=== PATIENT | female | born 1965 | race Caucasian/White ===

== ENCOUNTER → 2017-03-29 | Outpatient (CLI) | payer OTHER ==
--- NOTE | 2017-03-30 11:37 | MM ---
Reason for exam: screening (asymptomatic). Last mammogram was performed 1 year ago. Physical Findings: A clinical breast exam by your physician is recommended on an annual basis and results should be correlated with mammographic findings. MG Screening Mammo w CAD Bilateral CC and MLO view(s) were taken. Prior study comparison: March 16, 2016, left breast MG work up mamm w CAD LT. March 14, 2016, bilateral MG screening mammo w CAD. The breast tissue is extremely dense which could obscure a lesion on mammography. No suspicious abnormality. No significant changes when compared with prior studies. ASSESSMENT: Negative, BI-RAD 1 RECOMMENDATION: Routine screening mammogram of both breasts in 1 year.
== END | disposition home or self-care (01) ==
LOC: RADMAMWWP 08:40
PROVIDERS: ATTEND Obstetrics & Gynecology
DX: Z12.31 Encounter for screening mammogram for malignant neoplasm of breast (principal)

== ENCOUNTER → 2018-07-11 | Outpatient (CLI) | payer OTHER ==
--- NOTE | 2018-07-15 12:03 | MM ---
Reason for exam: screening (asymptomatic). Last mammogram was performed 1 year and 3 months ago. MG 3D Screening Mammo W/Cad Bilateral CC and MLO view(s) were taken. Prior study comparison: March 29, 2017, bilateral MG screening mammo w CAD. March 16, 2016, left breast MG work up mamm w CAD LT. The breast tissue is extremely dense which could obscure a lesion on mammography. There are benign-appearing round calcifications in bilateral breast. No discrete abnormality. ASSESSMENT: Benign, BI-RAD 2 RECOMMENDATION: Routine screening mammogram of both breasts in 1 year.
== END ==
LOC: RADMAMWWP 07:33
PROVIDERS: ATTEND Obstetrics & Gynecology
DX: Z12.31 Encounter for screening mammogram for malignant neoplasm of breast (principal)
CPT/HCPCS: 77063; 77067

== ENCOUNTER → 2019-07-29 | Outpatient (CLI) | payer OTHER ==
--- NOTE | 2019-07-29 10:21 | MM ---
Reason for exam: screening (asymptomatic). Last mammogram was performed 1 year and 1 month ago. Physical Findings: A clinical breast exam by your physician is recommended on an annual basis and results should be correlated with mammographic findings. MG 3D Screening Mammo W/Cad Bilateral CC and MLO view(s) were taken. Prior study comparison: July 11, 2018, bilateral MG 3d screening mammo w/cad. March 29, 2017, bilateral MG screening mammo w CAD. The breast tissue is extremely dense which could obscure a lesion on mammography. Benign appearing bilateral calcifications. No suspicious abnormality. No significant changes when compared with prior studies. ASSESSMENT: Benign, BI-RAD 2 RECOMMENDATION: Routine screening mammogram of both breasts in 1 year.
--- NOTE | 2019-07-29 11:45 | BD ---
EXAMINATION TYPE: Axial Bone Density DATE OF EXAM: 07/29/2019 COMPARISON: NONE CLINICAL HISTORY: N 95.1 Height: 66.5 IN Weight: 147 LBS FRAX RISK QUESTIONS: Alcohol (3 or more units per day): YES Secondary Osteoporosis: Current Tobacco Use: YES RISK FACTORS HISTORY OF: Active: YES If Premenopausal, do you have irregular periods: YES MEDICATIONS: Additional Medications: CALCIUM, VIT D, EXAM MEASUREMENTS: Bone mineral densitometry was performed using the [employer]. Bone mineral density as measured about the Lumbar spine is: ----- L1-L4(G/cm2): 1.176 T Score Values are as follows: ----- L2: 0.0 ----- L3: -0.5 ----- L4: 0.0 ----- L1-L4: 0.0 Bone mineral density BASELINE Bone mineral density about the R hip (g/cm2): 1.074 Bone mineral density about the L hip (g/cm2): 1.082 T Score values are as follows: -----R Neck: 0.3 -----L Neck: 0.3 -----R Total: 1.3 -----L Total: 0.4 Bone mineral density BASELINE IMPRESSION: Normal (Values between +1 and -1 indicate normal bone mass). Consider repeating this study in 5 year s or sooner if there is some new clinical indication. NOTE: T-SCORE=SD OF THE YOUNG ADULT MEAN.
== END | disposition home or self-care (01) ==
LOC: RADMAMWWP 07:32
PROVIDERS: ATTEND Obstetrics & Gynecology
DX: Z12.31 Encounter for screening mammogram for malignant neoplasm of breast (principal); N95.1 Menopausal and female climacteric states
CPT/HCPCS: 77063; 77067; 77080

== ENCOUNTER 2020-08-25 09:39 | Day surgery (SDC) | payer BC, OTHER ==
[2020-08-20 11:01] VITALS: BMI 26.2
[~2020-08-25 09:39] MED LIST: LACTATED RINGERS 1,000 ML IV SCH; LIDOCAINE 1% (10MG/ML) FOR IV START INTRADERMA PRN
[2020-08-25] MEDS ORDERED: PROPOFOL 10 MG/ML 20 ML VIAL IV ONE (10:37)
--- NOTE | 2020-08-25 10:42 | P.GSHP ---
History of Present Illness H&P Date: 08/25/20 Chief Complaint: Colon cancer screening Patient here today for colonoscopy. Last colonoscopy about 9 years ago. No family history of colon cancer. No bowel complaints. Last colonoscopy normal per patient. Past Medical History Past Medical History: No Reported History History of Any Multi-Drug Resistant Organisms: None Reported Past Surgical History: Cholecystectomy Past Anesthesia/Blood Transfusion Reactions: Motion Sickness Past Psychological History: Anxiety Smoking Status: Former smoker Past Alcohol Use History: Daily Additional Past Alcohol Use History / Comment(s): Smoked for 38 yrs, quit 13 months ago. Uses alcohol daily, 3-4 beers. Past Drug Use History: None Reported - Past Family History Mother Family Medical History: Deep Vein Thrombosis (DVT) Additional Family Medical History / Comment(s): "Blood clot around heart." Medications and Allergies Home Medications Medication Instructions Recorded Confirmed Type Ascorbic Acid [Vitamin C] 500 mg PO DAILY 08/20/20 08/25/20 History Cholecalciferol [Vitamin D3 (25 25 mcg PO DAILY 08/20/20 08/25/20 History Mcg = 1000 Iu)] Elderberry 1 tab PO DAILY 08/20/20 08/25/20 History Multivitamin [Multivitamins Adult 1 each PO DAILY 08/20/20 08/25/20 History Gummies] Venlafaxine HCl [Effexor] 37.5 mg PO DAILY 08/25/20 08/25/20 History Allergies Allergy/AdvReac Type Severity Reaction Status Date / Time codeine AdvReac Nausea Verified 08/25/20 10:14 Surgical - Exam Physical exam: General: Well-developed, well-nourished HEENT: Normocephalic, sclerae nonicteric Abdomen: Nontender, nondistended Extremities: No edema Neuro: Alert and oriented Assessment and Plan (1) Colon cancer screening Narrative/Plan: Will proceed with colonoscopy Current Visit: Yes Status: Acute Code(s): Z12.11 - ENCOUNTER FOR SCREENING FOR MALIGNANT NEOPLASM OF COLON SNOMED Code(s): 560545920
--- NOTE | 2020-08-25 10:58 | P.PCN ---
Date of Procedure: 08/25/20 Procedure(s) Performed: PREOPERATIVE DIAGNOSIS: Colon cancer screening POSTOPERATIVE DIAGNOSIS: Transverse colon polyp, mild diverticulosis PROCEDURE: Colonoscopy with snare polypectomy ANESTHESIA: MAC SURGEON: Guy Alejandra M.D. SPECIMENS: Polyp ENDOSCOPIC PROCEDURE: The patient was placed on the endoscopy table in the left decubitus position. The Olympus colonoscope was inserted into the anus and passed under direct visualization to the base of the cecum. The appendiceal orifice was visualized. From that point the scope was slowly withdrawn inspecting all surfaces carefully. There were no neoplastic inflammatory or polypoid lesions throughout the cecum and a setting colon. In the transverse colon a small polyp was seen and removed using the snare with cautery technique. The remainder of the transverse descending sigmoid and rectum was normal. There was mild left-sided diverticulosis present. Digital rectal examination was normal. The patient was taken to the recovery room in stable condition per anesthesia guidelines. RECOMMENDATIONS: Await biopsy results.
[2020-08-25 11:06] VITALS: RESP 16
[2020-08-25 11:19] VITALS: BP 115/79; PULSE 75
== END 2020-08-25 11:41 | disposition home or self-care (01) ==
LOC: ORWHC2ENDO 09:39
PROVIDERS: ATTEND Surgery
DX: Z12.11 Encounter for screening for malignant neoplasm of colon (principal); D12.3 Benign neoplasm of transverse colon; K57.30 Diverticulosis of large intestine without perforation or abscess without bleeding; F41.9 Anxiety disorder, unspecified; Z98.890 Other specified postprocedural states; Z90.49 Acquired absence of other specified parts of digestive tract; Z87.898 Personal history of other specified conditions; Z87.891 Personal history of nicotine dependence; Z79.899 Other long term (current) drug therapy; Z88.5 Allergy status to narcotic agent; Z82.49 Family history of ischemic heart disease and other diseases of the circulatory system
CPT/HCPCS: 88305; 45385; J2704

== ENCOUNTER → 2020-09-04 | Outpatient (CLI) | payer BC ==
--- NOTE | 2020-09-07 12:05 | MM ---
Reason for exam: screening (asymptomatic). Last mammogram was performed 1 year and 1 month ago. Physical Findings: A clinical breast exam by your physician is recommended on an annual basis and results should be correlated with mammographic findings. MG 3D Screening Mammo W/Cad Bilateral CC and MLO view(s) were taken. Prior study comparison: July 29, 2019, bilateral MG 3d screening mammo w/cad. July 11, 2018, bilateral MG 3d screening mammo w/cad. The breast tissue is heterogeneously dense. This may lower the sensitivity of mammography. There are benign appearing round calcifications bilaterally. There is no discrete abnormality. ASSESSMENT: Benign, BI-RAD 2 RECOMMENDATION: Routine screening mammogram of both breasts in 1 year.
== END ==
LOC: RADMAMWWP 07:42
PROVIDERS: ATTEND Obstetrics & Gynecology
DX: Z12.31 Encounter for screening mammogram for malignant neoplasm of breast (principal)
CPT/HCPCS: 77063; 77067

== ENCOUNTER → 2021-09-06 | Outpatient (CLI) | payer BC ==
--- NOTE | 2021-09-07 10:11 | MM ---
Reason for exam: screening (asymptomatic). Last mammogram was performed 1 year ago. History: Patient is postmenopausal. Physical Findings: A clinical breast exam by your physician is recommended on an annual basis and results should be correlated with mammographic findings. MG 3D Screening Mammo W/Cad Bilateral CC and MLO view(s) were taken. XCCL view(s) were taken of the right breast. Prior study comparison: September 04, 2020, bilateral MG 3d screening mammo w/cad. July 29, 2019, bilateral MG 3d screening mammo w/cad. The breast tissue is heterogeneously dense. This may lower the sensitivity of mammography. Finding #1: There is a 9 mm lobulated mass in the axilla position of the right breast. Finding #2: There are typically benign calcifications in both breasts. There is a chronic nodularity in the right breast, stable. There are grouped calcifications in the left upper breast. ASSESSMENT: Incomplete: need additional imaging evaluation, BI-RAD 0 RECOMMENDATION: Special view mammogram of the left breast. Ultrasound of the right breast. [facility] will attempt to contact patient to return for supplemental views and ultrasound.
== END | disposition home or self-care (01) ==
LOC: RADMAMWWP 07:34
PROVIDERS: ATTEND Obstetrics & Gynecology
DX: Z12.31 Encounter for screening mammogram for malignant neoplasm of breast (principal); Z78.0 Asymptomatic menopausal state
CPT/HCPCS: 77063; 77067

== ENCOUNTER → 2021-09-14 | Outpatient (CLI) | payer BC ==
--- NOTE | 2021-09-14 11:26 | USB ---
Reason for exam: additional evaluation requested from abnormal screening. History: Patient is postmenopausal. Physical Findings: A clinical breast exam by your physician is recommended on an annual basis and results should be correlated with mammographic findings. US Breast Workup Limited RT Right limited breast ultrasound including focal area of concern, retroareolar and axilla demonstrates a 10 x 8mm oval lymph node at 11 o'clock, 9-10cm from nipple, cortex slightly thickened at 3mm but fatty hilum maintained. 6 month follow up recommended. Scanned 11 o'clock, axilla tail and axilla. These results were verbally communicated with the patient and result sheet given to the patient on 09/14/21. ASSESSMENT: Probably benign, BI-RAD 3 RECOMMENDATION: Follow-up diagnostic mammogram of both breasts in 6 months.
--- NOTE | 2021-09-14 11:35 | MM ---
Reason for exam: additional evaluation requested from abnormal screening. Last mammogram was performed less than 1 month ago. History: Patient is postmenopausal. Physical Findings: A clinical breast exam by your physician is recommended on an annual basis and results should be correlated with mammographic findings. MG 3D Work Up W/Cad LT CC with magnification, LM with magnification, and LM view(s) were taken of the left breast. Prior study comparison: September 06, 2021, bilateral MG 3d screening mammo w/cad. September 04, 2020, bilateral MG 3d screening mammo w/cad. The breast tissue is heterogeneously dense. This may lower the sensitivity of mammography. Punctate and amorphous grouped calcifications upper outer quadrant posterior left breast are probably benign. They may have faintly been present previously. These results were verbally communicated with the patient and result sheet given to the patient on 09/14/21. ASSESSMENT: Incomplete: need additional imaging evaluation, BI-RAD 0 RECOMMENDATION: Ultrasound. (right breast)
== END | disposition home or self-care (01) ==
LOC: RADMAMWWP 09:53
PROVIDERS: ATTEND Obstetrics & Gynecology
DX: R92.8 Other abnormal and inconclusive findings on diagnostic imaging of breast (principal); Z78.0 Asymptomatic menopausal state
CPT/HCPCS: 77061; 77065

== ENCOUNTER 2021-11-19 02:42 | Inpatient (IN) | payer BC ==
--- NOTE | 2021-11-19 03:24 | ED ---
SOB HPI - General Chief Complaint: Shortness of Breath Stated Complaint: CECI Time Seen by Provider: 11/19/21 03:16 Source: patient, family, RN notes reviewed, old records reviewed Mode of arrival: ambulatory Limitations: no limitations - History of Present Illness Initial Comments: This is a 55-year-old female DF for evaluation. Patient hasn't been treated on an outpatient basis for wheezing and shortness of breath. Patient has a long history of smoking but did quit 2 years ago she also did have coronavirus about 2 years ago. No travel history no sick contacts no current fevers no chest pain. No swelling of the legs no pain in the legs. States her shortness of breath is severe especially with exertion MD Complaint: shortness of breath, cough -: week(s) Radiation: back Severity: severe Severity scale (1-10): 10 Consistency: constant Improves With: nothing, rest Worsens With: exertion, movement Known History Of: COPD, asthma Context: recent URI, recent illness Associated Symptoms: cough Treatments Prior to Arrival: none - Related Data Home Medications Medication Instructions Recorded Confirmed Ascorbic Acid [Vitamin C] 500 mg PO DAILY 08/20/20 08/25/20 Cholecalciferol [Vitamin D3 (25 25 mcg PO DAILY 08/20/20 08/25/20 Mcg = 1000 Iu)] Elderberry 1 tab PO DAILY 08/20/20 08/25/20 Multivitamin [Multivitamins Adult 1 each PO DAILY 08/20/20 08/25/20 Gummies] Venlafaxine HCl [Effexor] 37.5 mg PO DAILY 08/25/20 08/25/20 Allergies Allergy/AdvReac Type Severity Reaction Status Date / Time codeine AdvReac Nausea Verified 11/19/21 02:56 Review of Systems ROS Statement: Those systems with pertinent positive or pertinent negative responses have been documented in the HPI. ROS Other: All systems not noted in ROS Statement are negative. Past Medical History Past Medical History: No Reported History History of Any Multi-Drug Resistant Organisms: None Reported Past Surgical History: Cholecystectomy Past Anesthesia/Blood Transfusion Reactions: Motion Sickness Past Psychological History: Anxiety Smoking Status: Former smoker Past Alcohol Use History: Daily Past Drug Use History: None Reported - Past Family History Mother Family Medical History: Deep Vein Thrombosis (DVT) Additional Family Medical History / Comment(s): "Blood clot around heart." General Exam Limitations: no limitations General appearance: alert, in no apparent distress, anxious Head exam: Present: atraumatic, normocephalic, normal inspection Eye exam: Present: normal appearance, PERRL, EOMI. Absent: scleral icterus, conjunctival injection, periorbital swelling ENT exam: Present: normal exam, mucous membranes moist Neck exam: Present: normal inspection. Absent: tenderness, meningismus, lymphadenopathy Respiratory exam: Present: respiratory distress, wheezes, accessory muscle use, decreased breath sounds, prolonged expiratory. Absent: rales, rhonchi, stridor Cardiovascular Exam: Present: regular rate, normal rhythm, normal heart sounds. Absent: systolic murmur, diastolic murmur, rubs, gallop, clicks GI/Abdominal exam: Present: soft, normal bowel sounds. Absent: distended, tenderness, guarding, rebound, rigid Extremities exam: Present: normal inspection, full ROM, normal capillary refill. Absent: tenderness, pedal edema, joint swelling, calf tenderness Back exam: Present: normal inspection Neurological exam: Present: alert, oriented X3, CN II-XII intact Psychiatric exam: Present: normal affect, normal mood Skin exam: Present: warm, dry, intact, normal color. Absent: rash Course Vital Signs 11/19/21 11/19/21 11/19/21 02:53 03:26 03:28 Temperature 97.5 F L Pulse Rate 95 85 Respiratory 22 22 22 Rate Blood Pressure 133/81 139/77 O2 Sat by Pulse 86 L 93 L Oximetry 11/19/21 11/19/21 11/19/21 03:56 04:06 05:01 Temperature Pulse Rate 96 96 87 Respiratory 20 Rate Blood Pressure 122/58 O2 Sat by Pulse 94 L Oximetry - Reevaluation(s) Reevaluation #1: 11/19/21 05:09 Medical record is reviewed Reevaluation #2: 11/19/21 05:09 Breathing is improving here on breathing treatments as well as supplemental O2 Reevaluation #3: 11/19/21 05:09 Patient is informed of results and questions have been answered - Consultations Consultation #1: Spoke with PMH were agreeable to admit this patient Medical Decision Making - Medical Decision Making 55 female to the emergency department for evaluation of severe shortness of breath history of smoking no diagnosis of COPD. Patient likely has significant COPD with hypoxia acute bronchitis. Patient be admitted for further evaluation management - Lab Data Result diagrams: 11/19/21 03:51 11/19/21 03:51 Lab Results 11/19/21 11/19/21 11/19/21 Range/Units 03:51 03:51 03:51 WBC 8.7 (3.8-10.6) k/uL RBC 4.64 (3.80-5.40) m/uL Hgb 14.8 (11.4-16.0) gm/dL Hct 43.3 (34.0-46.0) % MCV 93.3 (80.0-100.0) fL MCH 31.9 (25.0-35.0) pg MCHC 34.2 (31.0-37.0) g/dL RDW 12.8 (11.5-15.5) % Plt Count 284 (150-450) k/uL MPV 7.1 Neutrophils % 40 % Lymphocytes % 47 % Monocytes % 4 % Eosinophils % 6 % Basophils % 1 % Neutrophils # 3.5 (1.3-7.7) k/uL Lymphocytes # 4.1 (1.0-4.8) k/uL Monocytes # 0.4 (0-1.0) k/uL Eosinophils # 0.6 (0-0.7) k/uL Basophils # 0.1 (0-0.2) k/uL PT 10.1 (9.0-12.0) sec INR 0.9 (<1.2) APTT 24.5 (22.0-30.0) sec D-Dimer 0.41 (<0.60) mg/L FEU Sodium 135 L (137-145) mmol/L Potassium 3.8 (3.5-5.1) mmol/L Chloride 103 (98-107) mmol/L Carbon Dioxide 23 (22-30) mmol/L Anion Gap 9 mmol/L BUN 4 L (7-17) mg/dL Creatinine 0.57 (0.52-1.04) mg/dL Est GFR (CKD-EPI)AfAm >90 (>60 ml/min/1.73 sqM) Est GFR (CKD-EPI)NonAf >90 (>60 ml/min/1.73 sqM) Glucose 103 H (74-99) mg/dL Calcium 8.6 (8.4-10.2) mg/dL Magnesium 1.9 (1.6-2.3) mg/dL Total Bilirubin 0.3 (0.2-1.3) mg/dL AST 27 (14-36) U/L ALT 31 (4-34) U/L Alkaline Phosphatase 82 (38-126) U/L Troponin I (0.000-0.034) ng/mL NT-Pro-B Natriuret Pep pg/mL Total Protein 6.8 (6.3-8.2) g/dL Albumin 4.2 (3.5-5.0) g/dL Coronavirus (PCR) (Not Detectd) 11/19/21 11/19/21 11/19/21 Range/Units 03:51 03:51 03:51 WBC (3.8-10.6) k/uL RBC (3.80-5.40) m/uL Hgb (11.4-16.0) gm/dL Hct (34.0-46.0) % MCV (80.0-100.0) fL MCH (25.0-35.0) pg MCHC (31.0-37.0) g/dL RDW (11.5-15.5) % Plt Count (150-450) k/uL MPV Neutrophils % % Lymphocytes % % Monocytes % % Eosinophils % % Basophils % % Neutrophils # (1.3-7.7) k/uL Lymphocytes # (1.0-4.8) k/uL Monocytes # (0-1.0) k/uL Eosinophils # (0-0.7) k/uL Basophils # (0-0.2) k/uL PT (9.0-12.0) sec INR (<1.2) APTT (22.0-30.0) sec D-Dimer (<0.60) mg/L FEU Sodium (137-145) mmol/L Potassium (3.5-5.1) mmol/L Chloride (98-107) mmol/L Carbon Dioxide (22-30) mmol/L Anion Gap mmol/L BUN (7-17) mg/dL Creatinine (0.52-1.04) mg/dL Est GFR (CKD-EPI)AfAm (>60 ml/min/1.73 sqM) Est GFR (CKD-EPI)NonAf (>60 ml/min/1.73 sqM) Glucose (74-99) mg/dL Calcium (8.4-10.2) mg/dL Magnesium (1.6-2.3) mg/dL Total Bilirubin (0.2-1.3) mg/dL AST (14-36) U/L ALT (4-34) U/L Alkaline Phosphatase (38-126) U/L Troponin I <0.012 (0.000-0.034) ng/mL NT-Pro-B Natriuret Pep 48 pg/mL Total Protein (6.3-8.2) g/dL Albumin (3.5-5.0) g/dL Coronavirus (PCR) Not Detected (Not Detectd) - EKG Data -: EKG Interpreted by Me (EKG is sinus rhythm 89 IA 122 QRS 13 QTc 460) - Radiology Data Radiology results: report reviewed (Chest x-ray shows interstitial infiltrate), image reviewed Critical Care Time Critical Care Time: Yes Total Critical Care Time: 31 Disposition Clinical Impression: Community acquired pneumonia, Acute exacerbation of chronic obstructive pulmonary disease, Hypoxia, Acute bronchitis Disposition: ADMITTED IP TO THIS HOSP Condition: Serious Is patient prescribed a controlled substance at d/c from ED?: No Referrals: Rabia Alejandra MD [Primary Care Provider] - 1-2 days
[2021-11-19] MEDS ORDERED: IPRATROPIUM-ALBUTEROL 3 ML NEB INHALATION STA ×2 (03:37→05:06)
[2021-11-19 04:20] LABS: INR 0.9 (<1.2); Partial Thromboplastin Time 24.5 sec (22.0-30.0); Prothrombin Time 10.1 sec (9.0-12.0)
[2021-11-19 04:23] LABS: ALT 31 U/L (4-34); AST 27 U/L (14-36); African American GFR (CKD) >90 (>60 ml/min/1.73 sqM); Albumin 4.2 g/dL (3.5-5.0); Alkaline Phosphatase 82 U/L (38-126); Anion Gap 9 mmol/L; Blood Urea Nitrogen 4 mg/dL (7-17); Calcium 8.6 mg/dL (8.4-10.2); Carbon Dioxide 23 mmol/L (22-30); Chloride 103 mmol/L (98-107); Glucose 103 mg/dL (74-99); Magnesium 1.9 mg/dL (1.6-2.3); Non-African American GFR(CKD) >90 (>60 ml/min/1.73 sqM); Potassium 3.8 mmol/L (3.5-5.1); Sodium 135 mmol/L (137-145); Total Bilirubin 0.3 mg/dL (0.2-1.3); Total Protein 6.8 g/dL (6.3-8.2)
[2021-11-19 04:35] LABS: Basophils # (A) 0.1 k/uL (0-0.2); Basophils % (A) 1 %; Eosinophils # (A) 0.6 k/uL (0-0.7); Eosinophils % (A) 6 %; HCT 43.3 % (34.0-46.0); HGB 14.8 gm/dL (11.4-16.0); Lymphocytes # (A) 4.1 k/uL (1.0-4.8); Lymphocytes % (A) 47 %; MCH 31.9 pg (25.0-35.0); MCHC 34.2 g/dL (31.0-37.0); MCV 93.3 fL (80.0-100.0); Mean Platelet Volume 7.1; Monocytes # (A) 0.4 k/uL (0-1.0); Monocytes % (A) 4 %; Neutrophils # (A) 3.5 k/uL (1.3-7.7); Neutrophils % (A) 40 %; Platelet Count 284 k/uL (150-450); RBC 4.64 m/uL (3.80-5.40); RDW 12.8 % (11.5-15.5); WBC 8.7 k/uL (3.8-10.6)
--- NOTE | 2021-11-19 05:02 | XR ---
EXAMINATION TYPE: XR chest 1V portable DATE OF EXAM: 11/19/2021 COMPARISON: 10/10/2010 HISTORY: Short of breath TECHNIQUE: Single view FINDINGS: There is some coarsening of the interstitial markings in the left lower lobe. No heart fail ure. Heart size is normal. There are no hilar masses. Costophrenic angles are clear IMPRESSION: Mildly increased pulmonary interstitial density compared to old exam. No heart failure.
[2021-11-19] MEDS ORDERED: methylPREDNISolone SOD SUCCI 125 MG/2 ML VIAL IV STA (05:06)
[2021-11-19] MEDS ORDERED: AZITHROMYCIN 500 MG in SODIUM CHLORIDE 0.9% 250 ML IVPB STA (05:11)
[2021-11-19] MEDS ORDERED: MORPHINE SULFATE 4 MG/ML SYRINGE IV PRN (05:49)
[2021-11-19] MEDS ORDERED: MORPHINE SULFATE 4 MG/ML SYRINGE IVP STA (05:49)
[2021-11-19] MEDS ORDERED: LORazepam 2 MG/ML INJ IV PRN (05:49)
[2021-11-19] MEDS ORDERED: LORazepam 2 MG/ML INJ IV STA (05:49)
[2021-11-19] MEDS: SODIUM CHLORIDE 0.9% 1,000 ML IV SCH ×2 (05:57→19:57)
[2021-11-19] MEDS: ALBUTEROL NEBULIZED 2.5 MG/3 ML INHALATION SCH ×3 (07:38→19:15)
[2021-11-19] MEDS: IPRATROPIUM-ALBUTEROL 3 ML NEB INHALATION SCH ×3 (11:45→20:09)
[2021-11-19] MEDS: methylPREDNISolone SOD SUCCI 125 MG/2 ML VIAL IV SCH ×3 (12:14→23:44)
--- NOTE | 2021-11-19 13:05 | P.CNPUL ---
History of Present Illness Consult date: 11/19/21 Requesting physician: Larry Mccormack Reason for consult: dyspnea, cough Chief complaint: Dyspnea, wheezing History of present illness: 55-year-old white female patient with known history of COPD, who follows with Dr. Rabia Alejandra, came into the emergency department on 11/19/2021 with shortness of breath, and wheezing. Patient has a long history of smoking, but did quit 2 years ago. She had a COVID 19 infection 2 years ago. Denies any fever, no chills, no chest pain. No swelling in lower extremities, no sick contacts. Patient is only on Ventolin HFA inhaler on a regular basis. No other inhalers for her history of COPD. Chest x-ray showing mildly increased pulmonary interstitial density. She was tested negative for COVID-19, CBC was within normal limits, white blood cell, was 8.7, hemoglobin was 14.8, correlation profile was within normal limits, d-dimer was 0.41, electrolytes were unremarkable, BUN was for creatinine 0.57, LFTs were within normal limits, troponin was negative at less than 0.012. On physical exam patient is significantly bronchospastic, but does not appear to be in any acute distress, on 4 L of oxygen pulse ox is 95%, ascites or stable, she is afebrile. Patient was started on IV steroids at 60 mg every 6 hours, azithromycin, nebulized bronchodilators. Review of Systems All systems: negative Constitutional: Denies chills, Denies fever Eyes: denies blurred vision, denies pain Ears, nose, mouth and throat: Denies headache, Denies sore throat Cardiovascular: Denies chest pain, Denies shortness of breath Respiratory: Reports congestion, Reports dyspnea, Reports wheezing, Denies cough Gastrointestinal: Denies abdominal pain, Denies diarrhea, Denies nausea, Denies vomiting Genitourinary: Denies dysuria, Denies hematuria Musculoskeletal: Denies myalgias Integumentary: Denies pruritus, Denies rash Neurological: Denies numbness, Denies weakness Psychiatric: Denies anxiety, Denies depression Endocrine: Denies fatigue, Denies weight change Past Medical History Past Medical History: No Reported History History of Any Multi-Drug Resistant Organisms: None Reported Past Surgical History: Cholecystectomy Past Anesthesia/Blood Transfusion Reactions: Motion Sickness Past Psychological History: Anxiety Smoking Status: Former smoker Past Alcohol Use History: Daily Past Drug Use History: None Reported - Past Family History Mother Family Medical History: Deep Vein Thrombosis (DVT) Additional Family Medical History / Comment(s): "Blood clot around heart." Medications and Allergies Home Medications Medication Instructions Recorded Confirmed Type ALPRAZolam [Xanax] 0.5 mg PO DAILY PRN 11/19/21 11/19/21 History Albuterol Inhaler [Ventolin Hfa 2 puff INHALATION RT-TID 11/19/21 11/19/21 History Inhaler] Allergies Allergy/AdvReac Type Severity Reaction Status Date / Time codeine AdvReac Nausea Verified 11/19/21 07:16 Physical Exam Vitals: Vital Signs Temp Pulse Resp BP Pulse Ox 11/19/21 11:58 100 11/19/21 11:45 103 H 11/19/21 06:18 97 11/19/21 06:00 99 11/19/21 05:47 101 H 16 116/81 94 L 11/19/21 05:01 87 20 122/58 94 L 11/19/21 04:06 96 11/19/21 03:56 96 11/19/21 03:28 22 11/19/21 03:26 85 22 139/77 93 L 11/19/21 02:53 97.5 F L 95 22 133/81 86 L Intake and Output 11/18/21 11/19/21 11/19/21 22:59 06:59 14:59 Other: Weight 79.379 kg GENERAL EXAM: Alert, pleasant, 55-year-old white female, on 4 L of oxygen comfortable in no apparent distress. HEAD: Normocephalic/atraumatic. EYES: Normal reaction of pupils, equal size. Conjunctiva pink, sclera white. NOSE: Clear with pink turbinates. THROAT: No erythema or exudates. NECK: No masses, no JVD, no thyroid enlargement, no adenopathy. CHEST: No chest wall deformity. Symmetrical expansion. LUNGS: Equal air entry with diffuse wheezes and congested cough CVS: Regular rate and rhythm, normal S1 and S2, no gallops, no murmurs, no rubs ABDOMEN: Soft, nontender. No hepatosplenomegaly, normal bowel sounds, no guarding or rigidity. EXTREMITIES: No clubbing, no edema, no cyanosis, 2+ pulses and upper and lower extremities. MUSCULOSKELETAL: Muscle strength and tone normal. SPINE: No scoliosis or deformity SKIN: No rashes CENTRAL NERVOUS SYSTEM: Alert and oriented -3. No focal deficits, tone is normal in all 4 extremities. PSYCHIATRIC: Alert and oriented -3. Appropriate affect. Intact judgment and insight. Results - Laboratory Findings CBC and BMP: 11/19/21 03:51 11/19/21 03:51 PT/INR, D-dimer PT 10.1 sec (9.0-12.0) 11/19/21 03:51 INR 0.9 (<1.2) 11/19/21 03:51 D-Dimer 0.41 mg/L FEU (<0.60) 11/19/21 03:51 Abnormal lab findings: Abnormal Labs 11/19/21 03:51 Sodium 135 L BUN 4 L Glucose 103 H - Diagnostic Findings Chest x-ray: report reviewed, image reviewed Assessment and Plan Plan: Assessment: #1. Acute hypoxic respiratory failure related to acute exacerbation of COPD #2. Former history of smoking, in remission for the last 2 years #3. History of COVID-19 infection in 2019 #4. Anxiety #5. History of COPD Plan: Continue IV steroids Continue DuoNeb, we will add Pulmicort and Perforomist Continue azithromycin We'll continue to follow patient's clinical course Wean FiO2 to keep O2 Sats above 90-92% I have personally seen and examined the patient, performed the documentation and the assessment and plan as written. Number of minutes spent on the visit: [15] Time with Patient: Greater than 30
[2021-11-19] MEDS: HEPARIN SODIUM,PORCINE/PF 5,000 UNIT/0.5 ML SYRINGE SQ SCH ×2 (17:10→23:44)
[2021-11-19] MEDS: guaiFENesin-Coden 100-10MG/5ML 10 ML CUP PO PRN ×2 (17:12→23:44)
[2021-11-19] MEDS ORDERED: ZOLPIDEM 5 MG TAB PO PRN (18:11)
[2021-11-19] MEDS ORDERED: IPRATROPIUM-ALBUTEROL 3 ML NEB INHALATION PRN (19:16)
[2021-11-19] MEDS: BUDESONIDE 1 MG/2 ML NEBU INHALATION SCH (20:09)
[2021-11-19] MEDS: FORMOTEROL FUMARATE 20 MCG/2 ML NEBU INHALATION SCH (20:09)
--- NOTE | 2021-11-19 23:12 | P.HPIM ---
History of Present Illness H&P Date: 11/19/21 Chief Complaint: SOB Patient is a 55-year-old female without significant past medical history presents to ER with complaints of shortness of breath and wheezing and worsening symptoms for the past 3 weeks. Patient was working in the garden about 3 weeks ago and started having shortness of breath and wheezing and was seen by primary care physician. Patient was given Ventolin inhaler and also steroid course which seem to be not helping. Yesterday she became more short of breath with exertional dyspnea and came to ER for evaluation. Does have cough with clear to whitish sputum production. No fever no chills. No chest pain. No nausea vomiting or abdominal pain or diarrhea. Denies any recent illnesses or sick contacts. No recent travel. Patient does have history of smoking for 30 years and quit 2 years ago. Chest x-ray showed mildly increased pulmonary interstitial density compatible exam. No heart failure. Laboratory data showed sodium 135 potassium 3.8 chloride 103 bicarb is 23 BUN 4 and creatinine 0.57 and blood sugar is 103 liver enzymes are not elevated and coronavirus PCR not detected. proBNP 48 WBC 8.7 hemoglobin 14.8 and platelets 284. Review of Systems Constitutional: Patient denies any fever or chills . No generalized weakness or weight loss. Abdomen: Patient denied nausea vomiting and diarrhea and abdominal pain. Cardiovascular: Patient denies any chest pain or short of breath no palpitations. Respiratory: patient does have cough with sputum production and shortness of breath Neurologic: Patient denied any numbness or tingling headache. Musculoskeletal: Patient denies any complaints of joint swelling or deformity. Skin: Negative Psychiatric: Negative Endocrine: No heat or cold intolerance. No recent weight gain. Genitourinary: No dysuria or hematuria. All other 14 point ROS negative except the above Past Medical History Past Medical History: No Reported History History of Any Multi-Drug Resistant Organisms: None Reported Past Surgical History: Cholecystectomy Past Anesthesia/Blood Transfusion Reactions: Motion Sickness Past Psychological History: Anxiety Smoking Status: Former smoker Past Alcohol Use History: Daily Past Drug Use History: None Reported - Past Family History Mother Family Medical History: Deep Vein Thrombosis (DVT) Additional Family Medical History / Comment(s): "Blood clot around heart." Father Family Medical History: Cancer, Coronary Artery Disease (CAD) Medications and Allergies Home Medications Medication Instructions Recorded Confirmed Type ALPRAZolam [Xanax] 0.5 mg PO DAILY PRN 11/19/21 11/19/21 History Albuterol Inhaler [Ventolin Hfa 2 puff INHALATION RT-TID 11/19/21 11/19/21 H istory Inhaler] Allergies Allergy/AdvReac Type Severity Reaction Status Date / Time codeine AdvReac Nausea Verified 11/19/21 07:16 Physical Exam Vitals: Vital Signs Temp Pulse Resp BP Pulse Ox 11/19/21 06:18 97 11/19/21 06:00 99 11/19/21 05:47 101 H 16 116/81 94 L 11/19/21 05:01 87 20 122/58 94 L 11/19/21 04:06 96 11/19/21 03:56 96 11/19/21 03:28 22 11/19/21 03:26 85 22 139/77 93 L 11/19/21 02:53 97.5 F L 95 22 133/81 86 L Intake and Output 11/18/21 11/19/21 11/19/21 22:59 06:59 14:59 Other: Weight 79.379 kg PHYSICAL EXAMINATION: Patient is lying in the bed comfortably, no acute distress, awake alert and oriented.. HEENT: Normocephalic. Neck is supple. Pupils reactive. Nostrils clear. Oral cavity is moist. Neck reveals no JVD, carotid bruits, or thyromegaly. CHEST EXAMINATION: Trachea is central. Symmetrical expansion. bilateral diminished sounds and wheezing. CARDIAC: Normal S1, S2 with no gallops. No murmurs ABDOMEN: Soft. Bowel sounds normal. No organomegaly. No abdominal bruits. Extremities: reveal no edema. No clubbing or cyanosis Neurologically awake, alert, oriented x3 with well-coordinated movements. No focal deficits noted Skin: No rash or skin lesions. Psychiatric: Cooperative. Nonsuicidal Musculoskeletal: No joint swelling or deformity. Normal range of motion. Results CBC & Chem 7: 11/19/21 03:51 11/19/21 03:51 Labs: Abnormal Lab Results - Last 24 Hours (Table) 11/19/21 Range/Units 03:51 Sodium 135 L (137-145) mmol/L BUN 4 L (7-17) mg/dL Glucose 103 H (74-99) mg/dL Thrombosis Risk Factor Assmnt - DVT/VTE Prophylaxis DVT/VTE Prophylaxis: Pharmacologic Prophylaxis ordered Assessment and Plan Assessment: Worsening shortness of breath secondary to COPD Acute COPD exacerbation. No prior history of pulmonary function tests. Acute hypoxic respiratory failure requiring oxygen at 3 L via nasal cannula. Pulse ox 86% on admission Time with Patient: Greater than 30
[2021-11-20 01:27] VITALS: TEMP 97.8
[2021-11-20] MEDS: methylPREDNISolone SOD SUCCI 125 MG/2 ML VIAL IV SCH (05:45)
[2021-11-20] MEDS: BUDESONIDE 1 MG/2 ML NEBU INHALATION SCH (07:31)
[2021-11-20] MEDS: IPRATROPIUM-ALBUTEROL 3 ML NEB INHALATION SCH ×2 (07:31→11:59)
[2021-11-20] MEDS: FORMOTEROL FUMARATE 20 MCG/2 ML NEBU INHALATION SCH (07:31)
[2021-11-20 08:01] VITALS: BP 134/86; PULSE 87; RESP 17
[2021-11-20] MEDS: HEPARIN SODIUM,PORCINE/PF 5,000 UNIT/0.5 ML SYRINGE SQ SCH (08:18)
[2021-11-20] MEDS ORDERED: AZITHROMYCIN 500 MG TAB PO SCH (09:00)
[2021-11-20 09:45] LABS: Basophils # (A) 0.02 X 10*3/uL (0.00-0.10); Basophils % (A) 0.1 %; Eosinophils # (A) 0 X 10*3/uL (0.04-0.35); Eosinophils % (A) 0 %; HCT 40.4 % (37.2-46.3); HGB 13.4 g/dL (12.0-15.0); Immature Grans, Automated 0.8 %; Lymphocytes # (A) 1.37 X 10*3/uL (0.90-5.00); MCH 30.7 pg (27.0-32.0); MCHC 33.2 g/dL (32.0-37.0); MCV 92.4 fL (80.0-97.0); Mean Platelet Volume 9.8 fL (9.5-12.2); Monocytes # (A) 0.48 X 10*3/uL (0.20-1.00); Monocytes % (A) 2.8 %; NRBC Per 100 WBC 0 /100 WBCS (0.0-0.0); Neutrophils # (A) 15.04 X 10*3/uL (1.80-7.70); Neutrophils % (A) 88.3 %; Platelet Count 271 X 10*3/uL (140-440); RBC 4.37 X 10*6/uL (4.10-5.20); RDW 13.1 % (11.5-14.5); WBC 17.04 X 10*3/uL (4.50-10.00)
[2021-11-20 09:59] LABS: African American GFR (CKD) 122.2 (60.0-200.0); Anion Gap 11.8 mmol/L (10.00-18.00); BUN/Creat Ratio 8.96 Ratio (12.00-20.00); Blood Urea Nitrogen 4.9 mg/dL (9.0-27.0); Calcium 9.5 mg/dL (8.7-10.3); Carbon Dioxide 21.1 mmol/L (20.0-27.5); Non-African American GFR(CKD) 105.4 (60.0-200.0); Potassium 3.8 mmol/L (3.5-5.5)
--- NOTE | 2021-11-20 11:35 | P.PN ---
Subjective Progress Note Date: 11/20/21 Principal diagnosis: COPD exacerbation 55-year-old white female patient with known history of COPD, who follows with Dr. Rabia Alejandra, came into the emergency department on 11/19/2021 with shortness of breath, and wheezing. Patient has a long history of smoking, but did quit 2 years ago. She had a COVID 19 infection 2 years ago. Denies any fever, no chills, no chest pain. No swelling in lower extremities, no sick contacts. Patient is only on Ventolin HFA inhaler on a regular basis. No other inhalers for her history of COPD. Chest x-ray showing mildly increased pulmonary interstitial density. She was tested negative for COVID-19, CBC was within normal limits, white blood cell, was 8.7, hemoglobin was 14.8, correlation profile was within normal limits, d-dimer was 0.41, electrolytes were unremarkable, BUN was for creatinine 0.57, LFTs were within normal limits, troponin was negative at less than 0.012. On physical exam patient is significantly bronchospastic, but does not appear to be in any acute distress, on 4 L of oxygen pulse ox is 95%, ascites or stable, she is afebrile. Patient was started on IV steroids at 60 mg every 6 hours, azithromycin, nebulized bronchodilators. The patient is seen today 11/20/2021 in follow-up on the regular medical floor. He has been treated for an acute exacerbation of chronic obstructive pulmonary disease. She is improved today. Feeling back to her baseline. Maintaining O2 saturations in the mid 90s on room air. She's been afebrile. Hemodynamically stable. White count 17.0. Hemoglobin 13.4. Sodium 140. Potassium 3.8. BUN 5. Creatinine 0.5. Glucose 181. She was initiated on DuoNeb inhalations, Pulm icort and Perforomist inhalations, IV Solu-Medrol. Empiric antibiotics in the form of azithromycin. Objective - Vital Signs Vital signs: Vital Signs Temp 97.8 F 11/20/21 08:00 Pulse 87 11/20/21 08:00 Resp 17 11/20/21 08:00 BP 134/86 11/20/21 08:00 Pulse Ox 95 11/20/21 08:00 Intake & Output 11/19/21 11/20/21 11/20/21 18:59 06:59 18:59 Weight 79.379 kg Other: # Voids 4 - Exam GENERAL EXAM: Alert, active, pleasant 55-year-old female patient, on room air, comfortable in no apparent distress. HEAD: Normocephalic. EYES: Normal reaction of pupils, equal size. NOSE: Clear with pink turbinates. THROAT: No erythema or exudates. NECK: No masses, no JVD. CHEST: No chest wall deformity. LUNGS: Equal air entry with no crackles, wheeze, rhonchi or dullness. Diminished. CVS: S1 and S2 normal with no audible murmur, regular rhythm. ABDOMEN: No hepatosplenomegaly, normal bowel sounds, no guarding or rigidity. SPINE: No scoliosis or deformity SKIN: No rashes CENTRAL NERVOUS SYSTEM: No focal deficits, tone is normal in all 4 extremities. EXTREMITIES: There is no peripheral edema. No clubbing, no cyanosis. Peripheral pulses are intact. - Labs CBC & Chem 7: 11/20/21 06:09 11/20/21 06:09 Labs: Abnormal Lab Results - Last 24 Hours (Table) 11/20/21 11/20/21 Range/Units 06:09 06:09 WBC 17.04 H (4.50-10.00) X 10*3/uL Immature Gran # 0.13 H (0.00-0.04) X 10*3/uL Neutrophils # 15.04 H (1.80-7.70) X 10*3/uL Eosinophils # 0 L (0.04-0.35) X 10*3/uL BUN 4.9 L (9.0-27.0) mg/dL Creatinine 0.5 L (0.6-1.5) mg/dL BUN/Creatinine Ratio 8.96 L (12.00-20.00) Ratio Glucose 181 H (70-110) mg/dL Assessment and Plan Assessment: Acute hypoxic respiratory failure related to acute exacerbation of COPD Former history of smoking, in remission for the last 2 years History of COVID-19 infection in 2019 Anxiety History of COPD Plan: The patient is seen and evaluated Labs and medications reviewed Cleared for discharge from the pulmonary standpoint Complete a prednisone taper starting at 30 mg daily for 5 days Continue Wixela, albuterol HFA and nebulized treatments Follow-up in our office in 1-2 weeks' I have personally seen and examined the patient, performed the documentation and the assessment and plan as written. Number of minutes spent on the visit: 10.
== END 2021-11-20 12:46 | disposition home or self-care (01) | DRG 190 ==
LOC: EC 02:42 → 4SSUR 05:07
PROVIDERS: ADMIT Hospitalist; ATTEND Hospitalist
DX: J44.0 Chronic obstructive pulmonary disease with (acute) lower respiratory infection (principal); J18.9 Pneumonia, unspecified organism; J96.01 Acute respiratory failure with hypoxia; J44.1 Chronic obstructive pulmonary disease with (acute) exacerbation; Z86.16 Personal history of COVID-19; J20.9 Acute bronchitis, unspecified; F41.9 Anxiety disorder, unspecified; Z90.49 Acquired absence of other specified parts of digestive tract; Z88.5 Allergy status to narcotic agent; Z79.899 Other long term (current) drug therapy; Z87.891 Personal history of nicotine dependence; Z83.2 Family history of diseases of the blood and blood-forming organs and certain disorders involving the immune mechanism; Z20.822 Contact with and (suspected) exposure to COVID-19; Z82.49 Family history of ischemic heart disease and other diseases of the circulatory system
CPT/HCPCS: 36415; 71045; 80048; 80053; 83735; 83880; 84484; 85025; 85379; 85610; 85730; 87635; 93005; 94640; 96365; 96375; 96376; 99291

== ENCOUNTER 2022-01-04 01:35 | Inpatient (IN) | payer BC ==
[2022-01-04] MEDS ORDERED: SODIUM CHLORIDE 0.9% 1,000 ML IV STA (01:58)
[2022-01-04] MEDS ORDERED: ALBUTEROL NEBULIZED 2.5 MG/3 ML INHALATION STA (01:58)
[2022-01-04] MEDS ORDERED: methylPREDNISolone SOD SUCCI 125 MG/2 ML VIAL IV STA (01:58)
[2022-01-04] MEDS ORDERED: IPRATROPIUM 0.5 MG/2.5 ML NEBU INHALATION STA (01:58)
[2022-01-04] MEDS ORDERED: MORPHINE SULFATE 2 MG/ML SYRINGE IVP PRN (01:59)
[2022-01-04] MEDS ORDERED: MORPHINE SULFATE 2 MG/ML SYRINGE IVP STA (01:59)
[2022-01-04] MEDS ORDERED: AZITHROMYCIN 500 MG in SODIUM CHLORIDE 0.9% 250 ML IVPB ONE (02:00)
--- NOTE | 2022-01-04 02:00 | ED ---
SOB HPI - General Chief Complaint: Shortness of Breath Stated Complaint: CECI Time Seen by Provider: 01/04/22 01:56 Source: patient, RN notes reviewed, old records reviewed Mode of arrival: ambulatory Limitations: no limitations - History of Present Illness MD Complaint: shortness of breath, cough, "asthma attack", anxiety -: hour(s) Radiation: back Severity: severe Severity scale (1-10): 9 Quality: throbbing Consistency: constant Improves With: nothing Worsens With: nothing Known History Of: COPD, asthma Context: recent URI, anxiety Associated Symptoms: cough, sputum production Treatments Prior to Arrival: none - Related Data Home Medications Medication Instructions Recorded Confirmed ALPRAZolam [Xanax] 0.5 mg PO DAILY PRN 11/19/21 11/19/21 Albuterol Inhaler [Ventolin Hfa 2 puff INHALATION RT-TID 11/19/21 11/19/21 Inhaler] Previous Rx's Medication Instructions Recorded Azithromycin [Zithromax] 500 mg PO DAILY #3 tab 11/20/21 Fluticasone Propionate 110 Mcg 1 puff INHALATION RT-BID #12 gm 11/20/21 [Flovent 110 Mcg Inhaler] Ipratropium-Albuterol Nebulize 3 ml INHALATION RT-QID PRN #180 ml 11/20/21 [Duoneb 0.5 mg-3 mg/3 ml Soln] predniSONE See Taper PO DIRECTED #18 tab 11/20/21 Allergies Allergy/AdvReac Type Severity Reaction Status Date / Time codeine AdvReac Nausea Verified 01/04/22 01:42 Review of Systems ROS Statement: Those systems with pertinent positive or pertinent negative responses have been documented in the HPI. ROS Other: All systems not noted in ROS Statement are negative. Past Medical History Past Medical History: No Reported History Additional Past Medical History / Comment(s): covid, diverticular disease, benign colon polyp, pt denies asthma/copd. History of Any Multi-Drug Resistant Organisms: None Reported Past Surgical History: Cholecystectomy Additional Past Surgical History / Comment(s): Colonoscopy/benign polyp removed Past Anesthesia/Blood Transfusion Reactions: Motion Sickness Past Psychological History: Anxiety Smoking Status: Former smoker Past Alcohol Use History: Daily Past Drug Use History: None Reported - Past Family History Mother Family Medical History: Deep Vein Thrombosis (DVT) Additional Family Medical History / Comment(s): "Blood clot around heart." Father Family Medical History: Cancer, Coronary Artery Disease (CAD) General Exam Limitations: no limitations General appearance: alert, in no apparent distress, anxious Head exam: Present: atraumatic, normocephalic, normal inspection Eye exam: Present: normal appearance, PERRL, EOMI. Absent: scleral icterus, conjunctival injection, periorbital swelling ENT exam: Present: normal exam, mucous membranes moist Neck exam: Present: normal inspection. Absent: tenderness, meningismus, ly mphadenopathy Respiratory exam: Present: normal lung sounds bilaterally, respiratory distress, wheezes, accessory muscle use, decreased breath sounds, prolonged expiratory. A bsent: rales, rhonchi, stridor Cardiovascular Exam: Present: normal rhythm, tachycardia, normal heart sounds. Absent: systolic murmur, diastolic murmur, rubs, gallop, clicks GI/Abdominal exam: Present: soft, normal bowel sounds. Absent: distended, tenderness, guarding, rebound, rigid Extremities exam: Present: normal inspection, full ROM, normal capillary refill. Absent: tenderness, pedal edema, joint swelling, calf tenderness Back exam: Present: normal inspection Neurological exam: Present: alert, oriented X3, CN II-XII intact Psychiatric exam: Present: normal affect, normal mood Skin exam: Present: warm, dry, intact, normal color. Absent: rash Course Vital Signs 01/04/22 01/04/22 01/04/22 01:38 02:03 02:51 Temperature 98.7 F Pulse Rate 111 H 113 H 125 H Respiratory 20 32 H Rate Blood Pressure 166/90 O2 Sat by Pulse 90 L Oximetry 01/04/22 01/04/22 03:20 03:32 Temperature Pulse Rate 112 H 112 H Respiratory Rate Blood Pressure O2 Sat by Pulse Oximetry Medical Decision Making - Lab Data Result diagrams: 01/04/22 02:03 01/04/22 02:03 Lab Results 01/04/22 01/04/22 01/04/22 Range/Units 02:03 02:03 02:03 WBC 7.0 (3.8-10.6) k/uL RBC 4.38 (3.80-5.40) m/uL Hgb 14.1 (11.4-16.0) gm/dL Hct 41.0 (34.0-46.0) % MCV 93.5 (80.0-100.0) fL MCH 32.2 (25.0-35.0) pg MCHC 34.5 (31.0-37.0) g/dL RDW 13.1 (11.5-15.5) % Plt Count 277 (150-450) k/uL MPV 7.1 Neutrophils % 53 % Lymphocytes % 34 % Monocytes % 5 % Eosinophils % 4 % Basophils % 1 % Neutrophils # 3.7 (1.3-7.7) k/uL Lymphocytes # 2.4 (1.0-4.8) k/uL Monocytes # 0.4 (0-1.0) k/uL Eosinophils # 0.3 (0-0.7) k/uL Basophils # 0.1 (0-0.2) k/uL PT 9.8 (9.0-12.0) sec INR 0.9 (<1.2) APTT 24.8 (22.0-30.0) sec Sodium 137 (137-145) mmol/L Potassium 3.7 (3.5-5.1) mmol/L Chloride 104 (98-107) mmol/L Carbon Dioxide 22 (22-30) mmol/L Anion Gap 11 mmol/L BUN 7 (7-17) mg/dL Creatinine 0.54 (0.52-1.04) mg/dL Est GFR (CKD-EPI)AfAm >90 (>60 ml/min/1.73 sqM) Est GFR (CKD-EPI)NonAf >90 (>60 ml/min/1.73 sqM) Glucose 103 H (74-99) mg/dL Plasma Lactic Acid Aleksandr (0.7-2.0) mmol/L Calcium 9.0 (8.4-10.2) mg/dL Magnesium 1.8 (1.6-2.3) mg/dL Total Bilirubin 0.3 (0.2-1.3) mg/dL AST 28 (14-36) U/L ALT 22 (4-34) U/L Alkaline Phosphatase 100 (38-126) U/L Troponin I (0.000-0.034) ng/mL NT-Pro-B Natriuret Pep pg/mL Total Protein 7.6 (6.3-8.2) g/dL Albumin 4.7 (3.5-5.0) g/dL 01/04/22 01/04/22 01/04/22 Range/Units 02:03 02:03 02:03 WBC (3.8-10.6) k/uL RBC (3.80-5.40) m/uL Hgb (11.4-16.0) gm/dL Hct (34.0-46.0) % MCV (80.0-100.0) fL MCH (25.0-35.0) pg MCHC (31.0-37.0) g/dL RDW (11.5-15.5) % Plt Count (150-450) k/uL MPV Neutrophils % % Lymphocytes % % Monocytes % % Eosinophils % % Basophils % % Neutrophils # (1.3-7.7) k/uL Lymphocytes # (1.0-4.8) k/uL Monocytes # (0-1.0) k/uL Eosinophils # (0-0.7) k/uL Basophils # (0-0.2) k/uL PT (9.0-12.0) sec INR (<1.2) APTT (22.0-30.0) sec Sodium (137-145) mmol/L Potassium (3.5-5.1) mmol/L Chloride (98-107) mmol/L Carbon Dioxide (22-30) mmol/L Anion Gap mmol/L BUN (7-17) mg/dL Creatinine (0.52-1.04) mg/dL Est GFR (CKD-EPI)AfAm (>60 ml/min/1.73 sqM) Est GFR (CKD-EPI)NonAf (>60 ml/min/1.73 sqM) Glucose (74-99) mg/dL Plasma Lactic Acid Aleksandr 2.1 H* (0.7-2.0) mmol/L Calcium (8.4-10.2) mg/dL Magnesium (1.6-2.3) mg/dL Total Bilirubin (0.2-1.3) mg/dL AST (14-36) U/L ALT (4-34) U/L Alkaline Phosphatase (38-126) U/L Troponin I <0.012 (0.000-0.034) ng/mL NT-Pro-B Natriuret Pep 43 pg/mL Total Protein (6.3-8.2) g/dL Albumin (3.5-5.0) g/dL - EKG Data -: EKG Interpreted by Me (Sinus tachycardia 113 NE 110 QRS 91 QTc 470) - Radiology Data Radiology results: report reviewed (Chest x-rays negative for acute disease), image reviewed Critical Care Time Critical Care Time: Yes Total Critical Care Time: 31 Disposition Clinical Impression: Acute bronchitis, Hypoxia, Acute exacerbation of chronic obstructive pulmonary disease Disposition: ADMITTED IP TO THIS HOSP Condition: Good Is patient prescribed a controlled substance at d/c from ED?: No Referrals: Rabia Alejandra MD [Primary Care Provider] - 1-2 days Time of Disposition: 04:00
[2022-01-04 02:19] LABS: Basophils # (A) 0.1 k/uL (0-0.2); Basophils % (A) 1 %; Eosinophils # (A) 0.3 k/uL (0-0.7); Eosinophils % (A) 4 %; HGB 14.1 gm/dL (11.4-16.0); Lymphocytes # (A) 2.4 k/uL (1.0-4.8); Lymphocytes % (A) 34 %; MCH 32.2 pg (25.0-35.0); MCHC 34.5 g/dL (31.0-37.0); MCV 93.5 fL (80.0-100.0); Mean Platelet Volume 7.1; Monocytes # (A) 0.4 k/uL (0-1.0); Monocytes % (A) 5 %; Neutrophils # (A) 3.7 k/uL (1.3-7.7); Neutrophils % (A) 53 %; Platelet Count 277 k/uL (150-450); RBC 4.38 m/uL (3.80-5.40); RDW 13.1 % (11.5-15.5)
[2022-01-04 02:30] LABS: ALT 22 U/L (4-34); AST 28 U/L (14-36); African American GFR (CKD) >90 (>60 ml/min/1.73 sqM); Albumin 4.7 g/dL (3.5-5.0); Alkaline Phosphatase 100 U/L (38-126); Anion Gap 11 mmol/L; Blood Urea Nitrogen 7 mg/dL (7-17); Carbon Dioxide 22 mmol/L (22-30); Chloride 104 mmol/L (98-107); Glucose 103 mg/dL (74-99); Magnesium 1.8 mg/dL (1.6-2.3); Non-African American GFR(CKD) >90 (>60 ml/min/1.73 sqM); Potassium 3.7 mmol/L (3.5-5.1); Sodium 137 mmol/L (137-145); Total Bilirubin 0.3 mg/dL (0.2-1.3); Total Protein 7.6 g/dL (6.3-8.2)
[2022-01-04 02:41] LABS: INR 0.9 (<1.2)
[2022-01-04 02:42] LABS: Partial Thromboplastin Time 24.8 sec (22.0-30.0); Prothrombin Time 9.8 sec (9.0-12.0)
--- NOTE | 2022-01-04 02:51 | XR ---
EXAM: XR Chest, 1 View CLINICAL HISTORY: ITS.REASON XR Reason: sob TECHNIQUE: Frontal view of the chest. COMPARISON: No relevant prior studies available. FINDINGS: Lungs: No consolidation or mass. Pleural space: No acute findings Heart: No cardiomegaly. Bones/joints: No acute findings. IMPRESSION: No acute cardiopulmonary process.
[2022-01-04] MEDS ORDERED: IPRATROPIUM-ALBUTEROL 3 ML NEB INHALATION STA (03:19)
[2022-01-04] MEDS ORDERED: SODIUM CHLORIDE 0.9% 1,000 ML IV SCH (04:15)
[2022-01-04] MEDS: methylPREDNISolone SOD SUCCI 125 MG/2 ML VIAL IV SCH ×2 (07:26→12:09)
[2022-01-04 07:31] VITALS: RESP 16; TEMP 98.2
[2022-01-04] MEDS: ALBUTEROL NEBULIZED 2.5 MG/3 ML INHALATION SCH ×3 (08:38→16:01)
[2022-01-04] MEDS ORDERED: AZITHROMYCIN 500 MG TAB PO SCH (09:00)
[2022-01-04] MEDS ORDERED: IPRATROPIUM-ALBUTEROL 3 ML NEB INHALATION PRN (11:47)
[2022-01-04] MEDS: IPRATROPIUM-ALBUTEROL 3 ML NEB INHALATION SCH ×2 (12:11→16:01)
--- NOTE | 2022-01-04 13:44 | P.CNPUL ---
History of Present Illness Consult date: 01/04/22 Requesting physician: Gwen Conklin Reason for consult: dyspnea, cough Chief complaint: Shortness of breath, wheezing and coughing History of present illness: This is a 56-year-old female patient of Dr. Rabia Alejandra, past medical history of mild COPD, outpatient PFT showing FEV1 of 2.88 L, or 98%, and DLCO of 64% of predicted, previous history of smoking, in remission for the past 2 years, histo ry of COVID-19 infection in 2019, anxiety, had a recent hospitalization in Oct, 2021 for acute exacerbation of COPD. Patient was seen in follow-up in the pulmonary clinic by Dr. Chavez, she was doing well, her outpatient PFT was reassuring, patient was started on albuterol on as needed basis. On 01/04/2022 patient presented to the emergency department for evaluation of shortness of breath, cough, anxiety. Patient states she has been doing her nebulized treatments, however [place] was [place] the beach [place], and was having increased coughing and wheezing. Denied any fever or chills, no chest pain, no hemoptysis, chest x-ray in emergency department showed no acute cardiopulmonary process. Lab work showed white blood cell count of 7.0, hemoglobin of 14.1, electrolytes and renal profile were unremarkable, lactic acid was 2.1, and subsequently went up to 4.5, and 7.0, and suspicion for sepsis is low, and this is possibly related to acute exacerbation of COPD. Troponin was less than 0.012 , proBNP was 43. LFTs were within normal limits, COVID-19 was negative. Patient was started on azithromycin and Rocephin, nebulized bronchodilators, and IV steroids. She was given a liter of IV fluid bolus in the emergency department, and she is currently on IV fluids at 100 ML per hour. On today's evaluation patient is already feeling better, her lung sounds are improved, on 2 L of oxygen her pulse ox is 94%. She states she is feeling much improved, and she is requesting to go home today. Review of Systems All systems: negative Constitutional: Denies chills, Denies fever Eyes: denies blurred vision, denies pain Ears, nose, mouth and throat: Denies headache, Denies sore throat Cardiovascular: Denies chest pain, Denies shortness of breath Respiratory: Reports dyspnea, Reports wheezing, Denies cough Gastrointestinal: Denies abdominal pain, Denies diarrhea, Denies nausea, Denies vomiting Genitourinary: Denies dysuria, Denies hematuria Musculoskeletal: Denies myalgias Integumentary: Denies pruritus, Denies rash Neurological: Denies numbness, Denies weakness Psychiatric: Denies anxiety, Denies depression Endocrine: Denies fatigue, Denies weight change Past Medical History Past Medical History: No Reported History Additional Past Medical History / Comment(s): 2018 and 2021 covid, diverticular disease, benign colon polyp, pt denies asthma/copd. History of Any Multi-Drug Resistant Organisms: None Reported Past Surgical History: Cholecystectomy Additional Past Surgical History / Comment(s): Colonoscopy/benign polyp removed Past Anesthesia/Blood Transfusion Reactions: No Reported Reaction Past Psychological History: Anxiety Additional Psychological History / Comment(s): Pt resides alone. She is independent. Smoking Status: Former smoker Past Alcohol Use History: Daily Additional Past Alcohol Use History / Comment(s): Pt started smoking in 1981 and quit in 2018. She drinks 5-6 beers a day. Past Drug Use History: None Reported - Past Family History Mother Family Medical History: Deep Vein Thrombosis (DVT) Additional Family Medical History / Comment(s): "Blood clot around heart." Father Family Medical History: Cancer, Coronary Artery Disease (CAD) Medications and Allergies Home Medications Medication Instructions Recorded Confirmed Type ALPRAZolam [Xanax] 0.5 mg PO DAILY PRN 11/19/21 01/04/22 History Albuterol Inhaler [Ventolin Hfa 2 puff INHALATION RT-TID 11/19/21 01/04/22 History Inhaler] Ipratropium-Albuterol Nebulize 3 ml INHALATION RT-QID PRN #180 ml 11/20/21 01/04/22 Rx [Duoneb 0.5 mg-3 mg/3 ml Soln] Albuterol Inhaler [Ventolin Hfa 1 - 2 puff INHALATION RT-Q6H PRN 01/04/22 Rx Inhaler] 30 Days #1 Azithromycin [Zithromax Tri-Trevor (3 500 mg PO DAILY 4 Days #4 tab 01/04/22 Rx tabs)] Budesonide-Formot 160-4.5 Mcg 2 puff INHALATION BID 30 Days 01/04/22 Rx [Symbicort 160-4.5 Mcg Inhaler] #10.2 gm Zolpidem [Ambien] 5 - 10 mg PO HS PRN 01/04/22 01/04/22 History predniSONE 0 mg PO DIRECTED 16 Days #40 tab 01/04/22 Rx Allergies Allergy/AdvReac Type Severity Reaction Status Date / Time codeine AdvReac Nausea Verified 01/04/22 08:12 Physical Exam Vitals: Vital Signs Temp Pulse Pulse Resp BP BP Pulse Ox 01/04/22 12:29 108 H 01/04/22 12:08 104 H 01/04/22 09:01 100 01/04/22 08:38 100 94 L 01/04/22 07:30 98.2 F 100 16 139/79 94 L 01/04/22 06:00 98.3 F 99 17 123/53 94 L 01/04/22 05:00 103 H 18 131/83 100 01/04/22 04:00 112 H 21 95 01/04/22 03:32 112 H 01/04/22 03:20 112 H 01/04/22 03:09 120 H 16 01/04/22 02:51 125 H 01/04/22 02:03 113 H 32 H 01/04/22 01:38 98.7 F 111 H 20 166/90 90 L Intake and Output 01/03/22 01/04/22 01/04/22 22:59 06:59 14:59 Intake Total 120 Balance 120 Intake: Oral 120 Other: Voiding Method Toilet # Voids 1 Weight 79.379 kg GENERAL EXAM: Alert, very pleasant, 56-year-old white female, 2 L oxygen pulse ox of 94 percent comfortable in no apparent distress. HEAD: Normocephalic/atraumatic. EYES: Normal reaction of pupils, equal size. Conjunctiva pink, sclera white. NOSE: Clear with pink turbinates. THROAT: No erythema or exudates. NECK: No masses, no JVD, no thyroid enlargement, no adenopathy. CHEST: No chest wall deformity. Symmetrical expansion. LUNGS: Equal air entry with mild scattered wheezing CVS: Regular rate and rhythm, normal S1 and S2, no gallops, no murmurs, no rubs ABDOMEN: Soft, nontender. No hepatosplenomegaly, normal bowel sounds, no g uarding or rigidity. EXTREMITIES: No clubbing, no edema, no cyanosis, 2+ pulses and upper and lower extremities. MUSCULOSKELETAL: Muscle strength and tone normal. SPINE: No scoliosis or deformity SKIN: No rashes CENTRAL NERVOUS SYSTEM: Alert and oriented -3. No focal deficits, tone is normal in all 4 extremities. PSYCHIATRIC: Alert and oriented -3. Appropriate affect. Intact judgment and insight. Results - Laboratory Findings CBC and BMP: 01/04/22 02:03 01/04/22 02:03 PT/INR, D-dimer PT 9.8 sec (9.0-12.0) 01/04/22 02:03 INR 0.9 (<1.2) 01/04/22 02:03 Abnormal lab findings: Abnormal Labs 01/04/22 01/04/22 01/04/22 02:03 02:03 05:28 Glucose 103 H Plasma Lactic Acid Aleksandr 2.1 H* 4.5 H* 01/04/22 10:10 Glucose Plasma Lactic Acid Aleksandr 7.0 H* - Diagnostic Findings Chest x-ray: report reviewed, image reviewed Assessment and Plan Plan: Assessment: #1. Acute hypoxic respiratory failure related to acute exacerbation of COPD, chest x-ray showed no acute cardiopulmonary disease, COVID-19 PCR was negative #2. Recent hospitalization in October 2021 for acute exacerbation of COPD #3. Lactic acidosis, not related to sepsis #4. Former history of COVID-19 infection in 2019 #5. History of mild COPD, with outpatient PFT of 2.88 L, or 98% and DLCO of 64% of predicted #6. Former smoker, in remission for the past 2 years #7. Anxiety Plan: Patient was seen and evaluated at the bedside along with Dr. Chavez Patient is breathing much easier since admission, responding to inpatient treatment, IV steroids, nebulized bronchodilators No evidence of any acute cardiopulmonary disease on the chest x-ray, From pulmonary perspective she could be considered for discharge home if cleared by medicine She can complete outpatient prednisone taper, She will need Symbicort inhaler 1604.5 might inhaler 2 puffs twice daily, Ventolin HFA inhaler, she can complete Z-Trevor, and prednisone taper Outpatient follow-up with Dr. Chavez in the office in 7-10 days I have personally seen and examined the patient, performed the documentation and the assessment and plan as written. Number of minutes spent on the visit: [15] Time with Patient: Greater than 30
[2022-01-04 14:41] VITALS: BP 120/67
--- NOTE | 2022-01-04 14:57 | HP ---
HISTORY AND PHYSICAL HISTORY AND PHYSICAL/DISCHARGE SUMMARY: CHIEF COMPLAINT: Shortness of breath. HISTORY OF PRESENT ILLNESS: This 56-year-old woman with a past medical history of bronchospastic disease, cholecystomy being followed Dr. Rabia Alejandra in the outpatient setting, the patient is not feeling well over the past several days. Because of increasing shortness of breath and cough, the patient came to [facility]. The patient had features of acute purulent tracheobronchitis and the patient was admitted for further evaluation and treatment. Currently the patient is keen on going home and Dr. Birch saw the patient and cleared the patient for discharge. The patient will be discharged home with further plans to follow up with Pulmonary as well as primary in the outpatient setting. The chest x-ray which I reviewed personally showed some increased bronchovascular markings. No definite evidence of any acute pneumonia. PAST MEDICAL HISTORY: Bronchospastic disease, cholecystectomy. HOME MEDICATIONS: Reviewed and include: DuoNeb. Dose and rest of medications noted. ALLERGIES: CODEINE. FAMILY HISTORY: History of DVT in the family. SOCIAL HISTORY: Previous history of smoking. REVIEW OF SYSTEMS: 14-point review of systems is negative except as mentioned earlier. PHYSICAL EXAMINATION: Pulse is 100. Blood pressure 130/70. Respirations 16. HEENT: Conjunctivae normal. NECK: No JVD. CARDIOVASCULAR: S1, S2. RESPIRATION: Breath sounds diminished in the bases. A few scattered rhonchi and crackles. ABDOMEN: Soft, nontender. LEGS are no edema. No swelling. NERVOUS SYSTEM: No focal deficits. LABS: Labs are at this time reviewed and include: CBC within normal limits. Lactic acid is 2.3. ASSESSMENT: 1. Chronic obstructive pulmonary disease acute exacerbation, acute purulent tracheobronchitis. 2. Elevated lactic acid. 3. History of cholecystectomy. 4. History of bronchospastic disease. RECOMMENDATIONS AND DISCUSSION: This 56 year-old woman who presented with multiple medical issues, at this time, I would recommend continue the bronchodilators, empiric antibiotics doses; tapering steroids. We will await Dr. Birch's recommendations. The patient is keen on going home. The patient will be discharged in a stable condition with guarded prognosis. Please refer to discharge medication reconciliation for further details. MMODL / IJN: [id number] /
--- NOTE | 2022-01-04 15:19 | P.DS ---
Providers Date of admission: 01/04/22 04:05 Expected date of discharge: 01/04/22 Attending physician: Gwen Conklin Consults: 01/04/22 11:39 Consult Physician Stat Consulting Provider: Zoey Birch Reason/Comments: shortness of breath/ copd Do you want consulting provider notified?: Yes Primary care physician: Rabia Alejandra [facility] Course: Final diagnosis Chronic obstructive pulmonary disease, acute exacerbation, acute purulent tracheobronchitis elevated lactic acid History of cholecystectomy History of bronchospastic disease Full code Discharge disposition Patient is being discharged in a stable condition with guarded prognosis to home. Patient will follow-up with Dr. Rabia Alejandra in the outpatient setting upon discharge. Patient is to continue with antibiotics in the form of Zithromax along with a prednisone taper and breathing inhalational treatments and close outpatient follow-up with pulmonary in the next week. Prescription also provided for repeat labs. Total time taken is greater than 35 minutes. Hospital course This is a 56-year-old female who recently was admitted for increasing shortness of breath and cough with features of acute purulent tracheobronchitis and being closely monitored. Patient was seen and evaluated by pulmonary who she sees in the outpatient setting and was cleared for discharge and patient will continue on Z-Trevor along with prednisone taper and continued breathing inhalational treatments and recommend outpatient follow-up in one week. Patient's lactic acid was elevated at 7 and recommend monitoring lab values with prescription provided for repeat labs in the next 2-3 days. Patient's Covid RSV and influenza testing are negative. Patient extremely anxious and would like to go home today. Currently no reports of chest pain, no worsening shortness of breath, or palpitations. Patient is afebrile. No reports of nausea or vomiting and patient is tolerating diet. Patient will be discharged home today. Guarded prognosis. On exam vital signs are stable. Cardio S1, S2 are muffled. Respiratory system shows diminished breath sounds at the bases with some minimal wheezing and scattered rhonchi noted. Abdomen is soft and nontender. Nervous system shows no focal deficits Please refer to medication reconciliation sheet for a list of medications. The impression and plan of care has been dictated by Manju Mayen, Nurse Practitioner as directed. Dr. Rubin MD I have performed a history and examination and MDM of this patient, discussed the same with the dictator, and agree with the dictator's assessment and plan as written ,documented as a scribe. Based on total visit time, I have performed more than 50% of the visit. Patient Condition at Discharge: Good Plan - Discharge Summary Discharge Rx Participant: Yes New Discharge Prescriptions: New predniSONE 0 mg PO DIRECTED 16 Days #40 tab Budesonide-Formot 160-4.5 Mcg [Symbicort 160-4.5 Mcg Inhaler] 2 puff INHALATION BID 30 Days #10.2 gm Albuterol Inhaler [Ventolin Hfa Inhaler] 1 - 2 puff INHALATION RT-Q6H PRN 30 Days #1 PRN Reason: Dyspnea Azithromycin [Zithromax Tri-Trevor (3 tabs)] 500 mg PO DAILY 4 Days #4 tab Ipratropium-Albuterol Nebulize [Duoneb 0.5 mg-3 mg/3 ml Soln] 3 ml INHALATION RT-QID 30 Days #90 each Continue Zolpidem [Ambien] 5 - 10 mg PO HS PRN PRN Reason: Insomnia Albuterol Inhaler [Ventolin Hfa Inhaler] 2 puff INHALATION RT-TID ALPRAZolam [Xanax] 0.5 mg PO DAILY PRN PRN Reason: Anxiety Ipratropium-Albuterol Nebulize [Duoneb 0.5 mg-3 mg/3 ml Soln] 3 ml INHALATION RT-QID PRN #180 ml PRN Reason: Shortness Of Breath Discontinued Fluticasone Propionate 110 Mcg [Flovent 110 Mcg Inhaler] 1 puff INHALATION RT-BID #12 gm Discharge Medication List ALPRAZolam [Xanax] 0.5 mg PO DAILY PRN 11/19/21 [History] Albuterol Inhaler [Ventolin Hfa Inhaler] 2 puff INHALATION RT-TID 11/19/21 [History] Ipratropium-Albuterol Nebulize [Duoneb 0.5 mg-3 mg/3 ml Soln] 3 ml INHALATION RT-QID PRN #180 ml 11/20/21 [Rx] Albuterol Inhaler [Ventolin Hfa Inhaler] 1 - 2 puff INHALATION RT-Q6H PRN 30 Days #1 01/04/22 [Rx] Azithromycin [Zithromax Tri-Trevor (3 tabs)] 500 mg PO DAILY 4 Days #4 tab 01/04/22 [Rx] Budesonide-Formot 160-4.5 Mcg [Symbicort 160-4.5 Mcg Inhaler] 2 puff INHALATION BID 30 Days #10.2 gm 01/04/22 [Rx] Ipratropium-Albuterol Nebulize [Duoneb 0.5 mg-3 mg/3 ml Soln] 3 ml INHALATION RT-QID 30 Days #90 each 01/04/22 [Rx] Zolpidem [Ambien] 5 - 10 mg PO HS PRN 01/04/22 [History] predniSONE 0 mg PO DIRECTED 16 Days #40 tab 01/04/22 [Rx] Follow up Appointment(s)/Referral(s): Zoey Birch MD [STAFF PHYSICIAN] - 1 Week Rabia Alejandra MD [Primary Care Provider] - 1-2 days Ambulatory/Diagnostic Orders: Miscellaneous Lab Order [LAB.AMB] Time Frame: 3 Days, Location: None Selected Activity/Diet/Wound Care/Special Instructions: Activity Limited until follow-up Follow-up with primary care provider on discharge Follow-up with pulmonary in one week Continue taking medications as prescribed Continue with breathing inhalational treatments along with inhalers and antibiotics and prednisone taper until finished Follow-up repeat labs and recommend follow-up with Dr. alejandra this week. Discharge Disposition: HOME SELF-CARE
[2022-01-04 16:05] VITALS: PULSE 100
== END 2022-01-04 16:42 | disposition home or self-care (01) | DRG 190 ==
LOC: EC 01:35 → 4SSUR 04:05
PROVIDERS: ADMIT Hospitalist; ATTEND Hospitalist
DX: J44.0 Chronic obstructive pulmonary disease with (acute) lower respiratory infection (principal); J96.01 Acute respiratory failure with hypoxia; E87.2 Acidosis; J41.1 Mucopurulent chronic bronchitis; J44.1 Chronic obstructive pulmonary disease with (acute) exacerbation; J20.9 Acute bronchitis, unspecified; F41.9 Anxiety disorder, unspecified; Z20.822 Contact with and (suspected) exposure to COVID-19; Z86.16 Personal history of COVID-19; Z79.51 Long term (current) use of inhaled steroids; Z82.49 Family history of ischemic heart disease and other diseases of the circulatory system; Z87.19 Personal history of other diseases of the digestive system; Z87.891 Personal history of nicotine dependence; Z90.49 Acquired absence of other specified parts of digestive tract; Z88.5 Allergy status to narcotic agent
CPT/HCPCS: 36415; 71045; 80053; 83605; 83735; 83880; 84484; 85025; 85610; 85730; 87502; 87635; 93005; 94640; 96365; 96366; 96375; 99291

== ENCOUNTER → 2022-01-05 | Outpatient (CLI) | payer BC | END | disposition home or self-care (01) | LOC: LABWHC1 10:40 | PROVIDERS: ATTEND Registered Nurse | DX: E87.2 Acidosis (principal) | CPT/HCPCS: 36415; 83605 ==

== ENCOUNTER → 2022-01-20 | Outpatient (CLI) | payer BC ==
[2022-01-20 15:29] LABS: Basophils % (A) 0 %; Eosinophils # (A) 0.1 k/uL (0-0.7); Eosinophils % (A) 1 %; HCT 43.4 % (34.0-46.0); HGB 14.6 gm/dL (11.4-16.0); Lymphocytes # (A) 3.4 k/uL (1.0-4.8); Lymphocytes % (A) 31 %; MCH 32.3 pg (25.0-35.0); MCHC 33.6 g/dL (31.0-37.0); MCV 96.1 fL (80.0-100.0); Mean Platelet Volume 8.3; Monocytes # (A) 0.6 k/uL (0-1.0); Monocytes % (A) 5 %; Neutrophils # (A) 6.7 k/uL (1.3-7.7); Neutrophils % (A) 61 %; Platelet Count 337 k/uL (150-450); RBC 4.51 m/uL (3.80-5.40); RDW 13.4 % (11.5-15.5); WBC 10.9 k/uL (3.8-10.6)
[2022-01-20 15:32] LABS: Total Eosinophil Count 109 #EOS/uL (150-300)
[2022-01-21 09:23] LABS: Alternaria alternata IgE <0.10 kU/L; Aspergillus fumagatus IgE <0.10 kU/L; Birch IgE <0.10 kU/L; Cat Epith & Dander IgE <0.10 kU/L; Cladosporian herbarum IgE <0.10 kU/L; Cockroach IgE <0.10 kU/L; Dermato. farinae IgE <0.10 kU/L; Dog Dander IgE <0.10 kU/L; Elm IgE <0.10 kU/L; Maple (Box Elder) IgE <0.10 kU/L; Oak IgE <0.10 kU/L; Ragweed,Common IgE <0.10 kU/L; Red Top (Bentgrass) IgE <0.10 kU/L
== END | disposition home or self-care (01) ==
LOC: LABWHC1 14:34
PROVIDERS: ATTEND Internal Medicine
DX: T78.40XA Allergy, unspecified, initial encounter (principal)
CPT/HCPCS: 36415; 82785; 85008; 85025; 86003

== ENCOUNTER → 2022-03-21 | Outpatient (CLI) | payer BC ==
--- NOTE | 2022-03-21 09:25 | MM ---
Reason for Exam: Follow-up at short interval from prior study. Last screening mammogram was performed 6 month(s) ago. Patient History: Menarche at age 13. First Full-Term at age 28. Postmenopausal. Risk Values: Roxanna 5 year model risk: 1.3%. NCI Lifetime model risk: 8.0%. Prior Study Comparison: 02/22/2001 Bilateral Screening Mammogram, [facility]. 06/15/2004 Bilateral Screening Mammogram, [facility]. 07/26/2005 Bilateral Screening Mammogram, [facility]. 08/30/2006 Bilateral Screening Mammogram, [facility]. 08/25/2008 Bilateral Screening Mammogram, [facility]. 09/11/2009 Bilateral Screening Mammogram, [facility]. 12/10/2010 Bilateral Screening Mammogram, [facility]. 01/16/2012 Bilateral Screening Mammogram, [facility]. 01/20/2012 Right Diagnostic Mammogram, [facility]. 01/20/2012 Right Diagnostic Ultrasound, [facility]. 07/12/2012 Right Diagnostic Mammogram, [facility] 01/16/2014 Bilateral Screening Mammogram, [facility]. 02/18/2015 Bilateral Screening Mammogram, [facility]. 03/14/2016 Bilateral Screening Mammogram, [facility]. 03/16/2016 Left Diagnostic Mammogram, [facility]. 03/29/2017 Bilateral Screening Mammogram, [facility]. 07/11/2018 Bilateral Screening Mammogram, [facility]. 07/29/2019 Bilateral Screening Mammogram, [facility]. 09/04/2020 Bilateral Screening Mammogram, [facility]. 09/06/2021 Bilateral Screening Mammogram, [facility]. 09/14/2021 Left Diagnostic Mammogram, [facility]. 09/14/2021 Right Diagnostic Ultrasound, [facility]. Tissue Density: The breast tissue is heterogeneously dense. This may lower the sensitivity of mammography. Findings: Analyzed By CAD. 8 mm nodule 4 posterior superior right MLO view corresponding to a low axillary tail lymph node, decreased in size from prior where it measured 1.1 cm. Grouped calcifications upper outer quadrant left breast now appear more coarse. These can continue to be followed and reassessed at an additional 6 month follow-up. Also in the left breast, central areas of asymmetric density posterior to middle depth appear more defined and incompletely dispersed on 3-D images. Further ultrasound evaluation recommended. Overall Assessment: Incomplete: need additional imaging evaluation, BI-RAD 0 Management: Diagnostic Breast Ultrasound of the left breast. From 11:00 to 2:00. Electronically signed and approved by: Shirley Sadler M.D. Radiologist
--- NOTE | 2022-03-21 10:18 | USB ---
Patient History: Menarche at age 13. First Full-Term at age 28. Postmenopausal. Risk Values: Roxanna 5 year model risk: 1.3%. NCI Lifetime model risk: 8.0%. Prior Study Comparison: 09/04/2020 Bilateral Screening Mammogram, [facility]. 09/06/2021 Bilateral Screening Mammogram, [facility]. 09/14/2021 Left Diagnostic Mammogram, [facility]. Findings: The upper section of the breast of the left breast, the axilla of the left breast and the retroareolar of the left breast were scanned. Targeted scanning left breast 9:00 to 3:00 position. Scattered dense tissues are present. At the 2:00 position, 8 cm from the nipple, there is a oval 5 x 4 x 4 mm lesion with posterior through transmission. It is either hypoechoic or anechoic with a echogenic nodule. A prominent intramammary lymph node is favored. Unable to entirely exclude a complex cyst. Reassess in 6 months. No other solid or cystic lesion. Overall Assessment: Probably benign, BI-RAD 3 Management: Diagnostic Mammogram of the left breast in 6 months. Six-month follow-up left breast ultrasound superior half. Particular attention to the 2:00 possible prominent intramammary lymph node. Patient should continue monthly self breast exams. Electronically signed and approved by: Shirley Sadler M.D. Radiologist
== END | disposition home or self-care (01) ==
LOC: RADMAMWWP 08:17
PROVIDERS: ATTEND Obstetrics & Gynecology
DX: R92.1 Mammographic calcification found on diagnostic imaging of breast (principal); Z78.0 Asymptomatic menopausal state
CPT/HCPCS: 77062; 77066

== ENCOUNTER → 2022-10-21 | Outpatient (CLI) | payer OTHER ==
--- NOTE | 2022-10-21 09:57 | CTL ---
EXAMINATION TYPE: CT Low Dose Lung DATE OF EXAM ORDERED: 10/21/2022 HISTORY: . Lung cancer screening CT DLP: 107.[address] CTDI: 3.0 mGy Automated exposure control for dose reduction was used. SCREENING VISIT: Initial COMPARISON: None TECHNIQUE: Low dose computed tomography scan was performed through the chest at 1 mm thick sections a nd reconstructed images in the coronal plane at [address] DIAGNOSTIC QUALITY: Satisfactory FINDINGS: LUNG NODULES: None. Couple of areas of minimal linear opacities suspicious for some mild atelectasis. LUNGS: COPD: Severity: Mild Fibrosis: Severity: None Lymph nodes: None Other findings: Normal RIGHT PLEURAL SPACE: Effusion: None Calcification: None Thickening: None Pneumothorax: None LEFT PLEURAL SPACE: Effusion: None Calcification: None Thickening: None Pneumothorax: None HEART: Heart Size: Normal Coronary calcification: Mild Pericardial effusion: None OTHER FINDINGS: Upper abdomen: Punctate nonobstructing calcification upper pole right kidney. Bony thorax: Normal Supraclavicular region: Normal Other: Ascending thoracic aorta at the level the main pulmonary artery measures 3.4 cm. The main pul monary artery at the bifurcation measures 2.7 cm. IMPRESSION: No suspicious changes to suggest primary or metastatic neoplasm. FOLLOW UP CT CHEST RECOMMENDATION: Low-dose CT chest [address] LUNG RAD: Lung-Rad 2 Benign Appearance or Behavior
== END | disposition home or self-care (01) ==
LOC: RADCTMAIN 08:28
PROVIDERS: ATTEND Family Medicine
DX: Z12.2 Encounter for screening for malignant neoplasm of respiratory organs (principal); Z87.891 Personal history of nicotine dependence
CPT/HCPCS: 71271

== ENCOUNTER → 2023-03-08 | Outpatient (CLI) | payer OTHER ==
--- NOTE | 2023-03-08 08:05 | MM ---
Reason for Exam: Follow-up at short interval from prior study. Last screening mammogram was performed 12 month(s) ago. Patient History: Menarche at age 13. First Full-Term at age 28. Postmenopausal. Patient has history of breast feeding. Risk Values: Roxanna 5 year model risk: 1.4%. NCI Lifetime model risk: 7.8%. Prior Study Comparison: 03/16/2016 Left Diagnostic Mammogram, [facility]. 03/29/2017 Bilateral Screening Mammogram, [facility]. 07/11/2018 Bilateral Screening Mammogram, [facility]. 07/29/2019 Bilateral Screening Mammogram, [facility]. 09/04/2020 Bilateral Screening Mammogram, [facility]. 09/06/2021 Bilateral Screening Mammogram, [facility]. 09/14/2021 Left Diagnostic Mammogram, [facility]. 09/14/2021 Right Diagnostic Ultrasound, [facility]. 03/21/2022 Left US breast limited LT, [facility]. 03/21/2022 Bilateral MG 3D diag mammo w/cad KSENIA, [facility]. 09/01/2022 Left MG 3D diag mammo w/cad LT, [facility]. 09/01/2022 Left US breast limited LT, [facility]. Tissue Density: The breast tissue is heterogeneously dense. This may lower the sensitivity of mammography. Findings: Analyzed By CAD. Heart appears symmetrical and stable. Benign punctate calcifications are present. No increasing group or cluster of microcalcifications is evident. No suspicious groups of microcalcifications, spiculated or lobular masses, architectural distortion or other secondary signs of malignancy are mammographically apparent. Overall Assessment: Benign, BI-RAD 2 Management: Screening Mammogram of both breasts in 1 year. A negative mammogram report should not preclude additional follow up of suspicious palpable abnormalities. Patient should continue monthly self breast exam. A clinical breast exam by your physician is recommended on an annual basis and results should be correlated with mammographic findings. Electronically signed and approved by: John Sosa D.O. Radiologis
== END | disposition home or self-care (01) ==
LOC: RADMAMWWP 07:36
PROVIDERS: ATTEND Obstetrics & Gynecology
DX: R92.8 Other abnormal and inconclusive findings on diagnostic imaging of breast (principal); Z78.0 Asymptomatic menopausal state
CPT/HCPCS: 77062; 77066

== ENCOUNTER → 2024-03-11 | Outpatient (CLI) | payer OTHER ==
--- NOTE | 2024-03-11 10:26 | MM ---
Reason for Exam: Screening (asymptomatic). Last screening mammogram was performed 12 month(s) ago. Patient History: Menarche at age 13. First Full-Term at age 28. Postmenopausal. Patient has history of breast feeding. Risk Values: Roxanna 5 year model risk: 1.4%. NCI Lifetime model risk: 7.6%. Prior Study Comparison: 03/21/2022 Bilateral MG 3D diag mammo w/cad KSENIA, [facility]. 09/01/2022 Left MG 3D diag mammo w/cad LT, [facility]. 03/08/2023 Bilateral MG 3D diag mammo w/cad KSENIA, [facility]. Tissue Density: The breasts are heterogeneously dense, which may obscure small masses. Findings: Analyzed By CAD. There is no suspicious group of microcalcifications or new suspicious mass in either breast. Overall Assessment: Negative, BI-RAD 1 Management: Screening Mammogram of both breasts in 1 year. . Patient should continue monthly self-breast exams. A clinical breast exam by your physician is recommended on an annual basis. This exam should not preclude additional follow-up of suspicious palpable abnormalities. Note on Roxanna scores and lifetime risk: 1. A Roxanna score greater than 3% is considered moderate risk. If this is the case, consider specialist referral to assess eligibility for a risk reducing agent. 2. If overall lifetime risk for the development of breast cancer is 20% or higher, the patient may qualify for future screening with alternating mammogram and breast MRI. Electronically signed and approved by: Eren Urban M.D. Radiologis
== END | disposition home or self-care (01) ==
LOC: RADMAMWWP 07:31
PROVIDERS: ATTEND Obstetrics & Gynecology Obstetrics
DX: Z12.31 Encounter for screening mammogram for malignant neoplasm of breast
CPT/HCPCS: 77063; 77067

== ENCOUNTER 2024-04-30 08:38 | Day surgery (SDC) | payer OTHER ==
[~2024-04-30 08:38] MED LIST changes: -LACTATED RINGERS 1,000 ML IV SCH
[2024-04-30] MEDS: IV FLUID CONTINUATION 1,000 ML IV ONE (08:56)
[2024-04-30 09:07] VITALS: RESP 16; TEMP 97.4
[2024-04-30] MEDS: LACTATED RINGERS 1,000 ML IV SCH (09:07)
[2024-04-30] MEDS ORDERED: PROPOFOL 10 MG/ML 20 ML VIAL IV ONE (09:13)
[2024-04-30] MEDS ORDERED: LIDOCAINE 2% (PF) 20 MG/ML 5 ML VIAL ONE (09:13)
--- NOTE | 2024-04-30 09:17 | P.GSHP ---
History of Present Illness H&P Date: 04/30/24 Chief Complaint: Abdominal pain, screening, history of colon polyps 58-year-old female here for upper and lower endoscopy. Patient had some black- colored stools that may have been related to Pepto-Bismol. She was having abdominal pain at the time. She started antiacids and has had improvement in her abdominal discomforts. Last colonoscopy 3-1/2 years ago. Patient had a colon polyp at that time. No current bowel complaints. Past Medical History Past Medical History: No Reported History Additional Past Medical History / Comment(s): 2018 and 2021 covid, diverticular disease, benign colon polyp, pt denies asthma/copd. History of Any Multi-Drug Resistant Organisms: None Reported Past Surgical History: Cholecystectomy Additional Past Surgical History / Comment(s): Colonoscopy/benign polyp removed Past Anesthesia/Blood Transfusion Reactions: No Reported Reaction Smoking Status: Former smoker - Past Family History Mother Family Medical History: Deep Vein Thrombosis (DVT) Additional Family Medical History / Comment(s): "Blood clot around heart." Father Family Medical History: Cancer, Coronary Artery Disease (CAD) Medications and Allergies Home Medications Medication Instructions Recorded Confirmed Type ALPRAZolam [Xanax] 0.5 mg PO DAILY PRN 11/19/21 04/30/24 History Albuterol Inhaler [Ventolin Hfa 1 - 2 puff INHALATION RT-Q6H PRN 01/04/22 04/30/24 Rx Inhaler] 30 Days #1 Zolpidem [Ambien] 5 - 10 mg PO HS PRN 01/04/22 04/30/24 History Budesonide-Formot 160-4.5 Mcg 2 puff INHALATION BID PRN 04/04/24 04/30/24 History [Symbicort 160-4.5 Mcg Inhaler] Rosuvastatin Calcium [Crestor] 5 mg PO DAILY 04/04/24 04/30/24 History Vit D(Unk) 1 tab PO DAILY 04/26/24 04/30/24 History Allergies Allergy/AdvReac Type Severity Reaction Status Date / Time codeine AdvReac Nausea Verified 04/30/24 08:57 Surgical - Exam Vital Signs Temp Pulse Resp BP Pulse Ox 97.4 F L 82 16 147/93 96 04/30/24 09:00 04/30/24 09:00 04/30/24 09:00 04/30/24 09:00 04/30/24 09:00 Physical exam: General: Well-developed, well-nourished HEENT: Normocephalic, sclerae nonicteric Abdomen: Nontender, nondistended Extremities: No edema Neuro: Alert and oriented Assessment and Plan (1) Colon cancer screening Narrative/Plan: Will proceed with upper and lower endoscopy at this time. Current Visit: No Status: Acute Code(s): Z12.11 - ENCOUNTER FOR SCREENING FOR MALIGNANT NEOPLASM OF COLON SNOMED Code(s): 319512429
--- NOTE | 2024-04-30 09:37 | P.PCN ---
Date of Procedure: 04/30/24 Procedure(s) Performed: PREOPERATIVE DIAGNOSIS: GI bleed, screening, history of polyp POSTOPERATIVE DIAGNOSIS: Mild gastritis, diverticulosis PROCEDURE: 1. EGD with biopsy 2. Colonoscopy ANESTHESIA: MAC SURGEON: Guy Alejandra M.D. SPECIMENS: Antrum ENDOSCOPIC PROCEDURE: The patient was on the endoscopy table in the left decubitus position. The Olympus gastroscope was inserted into the oropharynx and passed under direct visualization to the region of the third portion of the duodenum. From that point the scope was slowly withdrawn inspecting all surfaces carefully. There were no neoplastic inflammatory or polypoid lesions throughout the duodenum. The pylorus was widely patent. The stomach was carefully inspected. There was mild gastritis present. A biopsy of the antrum took place to rule out H. pylori. Retroflexion revealed a normal hiatus. The esophagus was then carefully examined. There were no neoplastic inflammatory or polypoid lesions throughout the visualized esophagus. The patient was kept on the endoscopy table in the left decubitus position. The Olympus colonoscope was inserted into the anus and passed under direct visualization to the base of the cecum. The appendiceal orifice was visualized. From that point the scope was slowly withdrawn inspecting all surfaces carefully. There were no neoplastic inflammatory or polypoid lesions throughout the cecum, ascending, transverse, descending, sigmoid and rectum. There was mild scattered diverticulosis noted throughout the colon. Digital rectal examination was normal. The patient was taken to the recovery room in stable condition per anesthesia guidelines. RECOMMENDATIONS: Resume diet. Await biopsy results. Repeat colonoscopy 5 years. Continue as needed antiacids.
[2024-04-30 10:02] VITALS: BP 132/85; PULSE 80
== END 2024-04-30 10:10 | disposition home or self-care (01) ==
LOC: ORWHC2ENDO 08:38
PROVIDERS: ATTEND Surgery
DX: K57.30 Diverticulosis of large intestine without perforation or abscess without bleeding (principal); K29.50 Unspecified chronic gastritis without bleeding; Z86.0100 Personal history of colon polyps, unspecified; Z88.5 Allergy status to narcotic agent
CPT/HCPCS: 45378; 88305; 43239; J2704; J2003

== ENCOUNTER → 2024-10-14 | Outpatient (CLI) | payer OTHER ==
--- NOTE | 2024-10-14 09:00 | CTL ---
EXAMINATION TYPE: CT Low Dose Lung DATE OF EXAM: 10/14/2024 8:27 AM COMPARISON: 10/21/2022 CLINICAL INDICATION: Female, 58 years old with history of Z12.2 ENCNTR SCREEN FOR MALIGNANT NEOPLASM OF RESP, FAMILY HX OF LUNG CA, History of tobacco use. Former smoker, quit in 2019, 57 pack-year hist ory. TECHNIQUE: Low dose computed tomography scan was performed through the chest at 1 mm thick sections a nd reconstructed images in multiple planes at 1 mm and [address] DLP: 88 mGy[address], [address] CTDI: 2.29 mGy, Automated exposure control for dose reduction was used. CT DIAGNOSTIC QUALITY: Satisfactory FINDINGS: The heart is normal size without pericardial effusion. Proximal LAD coronary calcifications are prese nt. Borderline ectasia upper ascending thoracic aorta 3.5 cm. Conventional arch vessel branching anatomy. No thoracic lymph adenopathy by CT size criteria. Mild diffuse bronchial wall thickening. Some strandy atelectasis/scarring in the lower lungs. Mild to moderate emphysematous change. Mild biapical pleural-parenchymal scarring. No consolidation or pleural effusion. 4 mm left lower lobe pulmonary nodule, axial image 236 is unchanged. 4 mm subpleural pulmonary nodule posterior right midlung, axial image 143 is unchanged. Visualized upper abdomen shows cholecystectomy clips and a small hilar splenule. Bones: No osseous destructive process. Slight levoconvex curvature along the upper thoracic spine. IMPRESSION: 1. Lung RADS 2, benign. A couple 4 mm pulmonary nodules remain unchanged. 2. COPD with [id number] emphysema. CT LUNG RAD AND CT CHEST RECOMMENDATION: Lung-Rad 2 Benign Appearance or Behavior: Continue annual sc reening with LDCT in 12 months. S Modifier (other clinically significant findings): None [facility], , 10/14/2024 8:58 AM
== END | disposition home or self-care (01) ==
LOC: RADCTMAIN 07:59
PROVIDERS: ATTEND Family Medicine
DX: Z12.2 Encounter for screening for malignant neoplasm of respiratory organs (principal); J43.9 Emphysema, unspecified; R91.8 Other nonspecific abnormal finding of lung field; J44.9 Chronic obstructive pulmonary disease, unspecified; Z87.891 Personal history of nicotine dependence
CPT/HCPCS: 71271